=== PATIENT | male | born 1975 | race Caucasian/White ===

== ENCOUNTER 2021-04-25 01:01 | Emergency (ER) | payer BC, OTHER ==
[~2021-04-25] VITALS: Ht 172.7 cm; Wt 105.7 kg
[2021-04-25 01:07] VITALS: BP 179/108
--- NOTE | 2021-04-25 01:25 | ED GI ---
General Chief Complaint: Abdominal/GI Problems Stated Complaint: ABDOMINAL PAIN Source of Information: Patient History of Present Illness Date Seen by Provider: Apr 25, 2021 Time Seen by Provider: 01:22 Initial Comments 45-year-old male presents with left lower abdominal pain present since yesterday morning and then worse tonight around 8 PM pain waxed and waned up until that time before got worse and became constant. Some associated nausea without vomiting. Denies constipation or diarrhea. Lateral movement within the last 12 hours and it was normal without any blood. No significant past medical history. No difficulty with urination or blood in his urine. Recent illness, fever chills Allergies and Home Medications Allergies Coded Allergies: No Known Drug Allergies (Unverified , 04/25/21) Home Medications Hydrocodone/Acetaminophen 1 Each Tablet, 1 EACH PO Q4H Prescribed by: SONYA CARRANZA on 04/25/21152 Ibuprofen 800 Mg Tablet, 800 MG PO Q8H PRN for PAIN Prescribed by: SONYA CARRANZA on 04/25/21152 Tamsulosin HCl 0.4 Mg Cap, 0.4 MG PO DAILY Prescribed by: SONYA CARRANZA on 04/25/21152 Patient Home Medication List Home Medication List Reviewed: Yes Review of Systems Review of Systems Constitutional: No fever, No malaise, No weakness Respiratory: Denies Cough, Denies Shortness of Air Cardiovascular: Denies Chest Pain, Denies Edema, Denies Lightheadedness Gastrointestinal: See HPI; Denies Abdomen Distended; Abdominal Pain; Denies Constipated, Denies Diarrhea, Denies Nausea, Denies Poor Appetite, Denies Vomiting Genitourinary: Denies Burning, Denies Flank Pain, Denies Hematuria Musculoskeletal: No back pain, No joint pain Skin: No change in color, No rash Past Erllwvy-[id number]-Mwmygc Hx Patient Social History Tobacco Use?: No Use of E-Cig and/or Vaping dev: No Substance use?: No Alcohol Use?: No Pt feels they are or have been: No Physical Exam Vital Signs Vital Signs - First Documented 04/25/21 01:07 Temp 35.7 Pulse 94 Resp 14 B/P (MAP) 179/108 (131) Pulse Ox 98 Capillary Refill : Height/Weight/BMI Height: '" Weight: lbs. oz. kg; BMI Method: General Appearance: WD/WN, no apparent distress Respiratory: chest non-tender, lungs clear, normal breath sounds Cardiovascular: regular rate, rhythm, no edema, no JVD Gastrointestinal: soft; No guarding, No rebound; tenderness (LLQ); No hepatomegaly, No spleenomegaly Back: normal inspection, no CVA tenderness, no vertebral tenderness Male: no hernia; No inguinal tenderness, No testicular tenderness Neurologic/Psychiatric: alert, normal mood/affect, oriented x 3 Skin: normal color, warm/dry Progress/Results/Core Measures Results/Orders Lab Results Laboratory Tests Test 04/25/21 01:26 04/25/21 01:30 Range/Units Urine Color YELLOW Urine Clarity CLOUDY Urine pH 8.0 5-9 Urine Specific [place] 1.015 L 1.016-1.022 Urine Protein NEGATIVE NEGATIVE Urine Glucose (UA) NEGATIVE NEGATIVE Urine Ketones NEGATIVE NEGATIVE Urine Nitrite NEGATIVE NEGATIVE Urine Bilirubin NEGATIVE NEGATIVE Urine Urobilinogen 1.0 < = 1.0 MG/DL Urine Leukocyte Esterase NEGATIVE NEGATIVE Urine RBC (Auto) 2+ H NEGATIVE Urine RBC 25-50 H /HPF Urine WBC NONE /HPF Urine Squamous Epithelial Cells NONE /HPF Urine Crystals PRESENT H /LPF Urine Amorphous Sediment LARGE FERCHO PHOSPHATE H /LPF Urine Bacteria FEW H /HPF Urine Casts NONE /LPF Urine Mucus NEGATIVE /LPF Urine Culture Indicated NO White Blood Count 13.1 H 4.3-11.0 10^3/uL Red Blood Count 5.45 4.35-5.85 10^6/uL Hemoglobin 16.5 13.3-17.7 G/DL Hematocrit 47 40-54 % Mean Corpuscular Volume 86 80-99 FL Mean Corpuscular Hemoglobin 30 25-34 PG Mean Corpuscular Hemoglobin Concent 35 32-36 G/DL Red Cell Distribution Width 12.7 10.0-14.5 % Platelet Count 236 130-400 10^3/uL Mean Platelet Volume 10.2 7.4-10.4 FL Immature Granulocyte % (Auto) 0 % Neutrophils (%) (Auto) 88 H 42-75 % Lymphocytes (%) (Auto) 7 L 12-44 % Monocytes (%) (Auto) 4 0-12 % Eosinophils (%) (Auto) 0 0-10 % Basophils (%) (Auto) 0 0-10 % Neutrophils # (Auto) 11.5 H 1.8-7.8 X 10^3 Lymphocytes # (Auto) 1.0 1.0-4.0 X 10^3 Monocytes # (Auto) 0.5 0.0-1.0 X 10^3 Eosinophils # (Auto) 0.0 0.0-0.3 10^3/uL Basophils # (Auto) 0.1 0.0-0.1 10^3/uL Immature Granulocyte # (Auto) 0.1 0.0-0.1 10^3/uL Neutrophils % (Manual) 91 % Lymphocytes % (Manual) 4 % Monocytes % (Manual) 5 % Sodium Level 140 135-145 MMOL/L Potassium Level 4.0 3.6-5.0 MMOL/L Chloride Level 103 98-107 MMOL/L Carbon Dioxide Level 26 21-32 MMOL/L Anion Gap 11 5-14 MMOL/L Blood Urea Nitrogen 13 7-18 MG/DL Creatinine 1.46 H 0.60-1.30 MG/DL Estimat Glomerular Filtration Rate 52 BUN/Creatinine Ratio 9 Glucose Level 200 H 70-105 MG/DL Calcium Level 9.3 8.5-10.1 MG/DL My Orders Orders - SONYA CARRANZA DO Ct Abdomen/Pelvis Wo (04/25/21 01:19) Ns Iv 1000 Ml (Sodium Chloride 0.9%) (04/25/21 01:30) Ketorolac Injection (Toradol Injection) (04/25/21 01:30) Ed Iv/Invasive Line Start (04/25/21 01:19) Cbc With Automated Diff (04/25/21 01:19) Urinalysis (04/25/21 01:19) Basic Metabolic Panel (04/25/21 01:19) Manual Differential (04/25/21 01:30) Medications Given in ED Current Medications Medications Dose Ordered Sig/Deisy Route Start Time Stop Time Status Last Admin Dose Admin Ketorolac Tromethamine 30 mg ONCE ONCE IVP 04/25/21 01:30 04/25/21 01:31 DC 04/25/21 01:31 30 MG Vital Signs/I&O 04/25/21 01:07 Temp 35.7 Pulse 94 Resp 14 B/P (MAP) 179/108 (131) Pulse Ox 98 Progress Progress Note : Progress Note felt much better after toradol reassurance given, explained stone would likely pass, need to strain urine and URO follow up if not improving in a few days. Diagnostic Imaging Diagonstic Imaging: CT Plain Films/CT/US/NM/MRI: abdomen, pelvis Comments distal ureteral stone Let UVJ Reviewed: Reviewed by Me Departure Impression Primary Impression: Abdominal pain Qualified Codes: R10.32 - Left lower quadrant pain Disposition: HOME, SELF-CARE Condition: Improved Departure-Patient Inst. Decision time for Depature: 01:51 Referrals: ROSE PAUL MD (PCP/Family) Primary Care Physician GRACIA ARAGON MD Patient Instructions: Kidney Stone Diet, Kidney Stones (DC) Add. Discharge Instructions: Call Dr Aragon's office in 2 to 3 days if symptoms are not resolved All discharge instructions reviewed with patient and/or family. Voiced understanding. Scripts Ibuprofen (Ibuprofen) 800 Mg Tablet 800 MG PO Q8H PRN for PAIN, #30 TAB 0 Refills Prov: SONYA CARRANZA DO 04/25/21 Hydrocodone/Acetaminophen (Hydrocodone-Acetamin 5-325 mg) 1 Each Tablet 1 EACH PO Q4H for Abdominal Pain, #10 TAB Prov: SONYA CARRANZA DO 04/25/21 Tamsulosin HCl (Flomax) 0.4 Mg Cap 0.4 MG PO DAILY, #5 CAP Prov: SONYA CARRANZA DO 04/25/21 SONYA CARRANZA DO Apr 25, 2021 01:25
[2021-04-25] MEDS ORDERED: NS IV 1000 ML 1,000 ML IV SCH (01:30)
[2021-04-25] MEDS ORDERED: KETOROLAC 30 MG/ML VIAL IVP ONE (01:30)
[2021-04-25 01:39] LABS: BASOPHILS % (AUTO) 0 % (0-10); EOSINOPHILS % (AUTO) 0 % (0-10); HEMATOCRIT 47 % (40-54); HEMOGLOBIN 16.5 G/DL (13.3-17.7); LYMPHOCYTES % (AUTO) 7 % (12-44); MEAN CORPUSCULAR HEMOGLOBIN 30 PG (25-34); MEAN CORPUSCULAR HGB CONC 35 G/DL (32-36); MEAN CORPUSCULAR VOLUME 86 FL (80-99); MEAN PLATELET VOLUME 10.2 FL (7.4-10.4); MONOCYTES # (AUTO) 0.5 X 10^3 (0.0-1.0); MONOCYTES % (AUTO) 4 % (0-12); NEUTROPHILS # (AUTO) 11.5 X 10^3 (1.8-7.8); NEUTROPHILS % (AUTO) 88 % (42-75); PLATELET COUNT 236 10^3/uL (130-400); WHITE BLOOD COUNT 13.1 10^3/uL (4.3-11.0)
[2021-04-25 01:40] LABS: BASOPHILS # (AUTO) 0.1 10^3/uL (0.0-0.1)
[2021-04-25 01:46] LABS: AMORPHOUS SEDIMENT,UR LARGE AMOR PHOSPHATE /LPF; BACTERIA,URINE FEW /HPF; BILIRUBIN,URINE NEGATIVE (NEGATIVE); CLARITY,URINE CLOUDY; COLOR,URINE YELLOW; GLUCOSE, URINE (UA) NEGATIVE (NEGATIVE); KETONES,URINE NEGATIVE (NEGATIVE); LEUKOCYTE ESTERASE ,URINE NEGATIVE (NEGATIVE); NITRITE,URINE NEGATIVE (NEGATIVE); PROTEIN,URINE NEGATIVE (NEGATIVE); RBC,URINE 25-50 /HPF
[2021-04-25 01:52] LABS: LYMPHOCYTES % (MANUAL) 4 %; MONOCYTES % (MANUAL) 5 %; NEUTROPHILS % (MANUAL) 91 %
[2021-04-25] MEDS ORDERED: TMSL.4C PO (01:53)
[2021-04-25] MEDS ORDERED: ACHD5005 PO (01:53)
[2021-04-25] MEDS ORDERED: IBUP-1780 PO (01:53)
[2021-04-25 01:59] LABS: CALCIUM 9.3 MG/DL (8.5-10.1); CREATININE SERUM 1.46 MG/DL (0.60-1.30)
--- NOTE | 2021-04-25 07:17 | Diagnostic Imaging Report ---
PROCEDURE: CT abdomen and pelvis without contrast. TECHNIQUE: Multiple contiguous axial images were obtained through the abdomen and pelvis without the use of intravenous contrast. Auto Exposure Controls were utilized during the CT exam to meet ALARA standards for radiation dose reduction. INDICATION: Left lower abdominal pain COMPARISON: There are no prior studies available for comparison. FINDINGS: Image 146 of 183 through the low pelvis shows a 5.2 mm calculus in the distal-most portion of the left ureter. There is considerable distortion of the periureteral fat near the bladder and there is dilatation of the left ureter and left renal pelvis. There is also pronounced perinephric stranding. These findings would be consistent with obstruction of the left collecting system due to the aforementioned calculus. There is no other evidence for nephrolithiasis or urolithiasis. There is diverticulosis of the sigmoid colon but there is no sign of acute diverticulitis. The appendix was not well-visualized. There is no acute abnormality of the abdomen or pelvis noted otherwise. The lung bases are clear. The bone windows show no sign of a fracture or of a destructive lesion. IMPRESSION: 1. There is partial obstruction of the left collecting system due to a 5.2 mm calculus at the ureterovesical junction. 2. There is no acute abnormality of the abdomen or pelvis noted otherwise. 3. I agree with the [facility] interpretation of this exam. Dictated by: Dictated on workstation # [id number]
== END 2021-04-25 01:57 | disposition home or self-care (01) ==
LOC: ER FS 01:06
DX: R10.32 Left lower quadrant pain (principal)
CPT/HCPCS: 36415; 74176; 80048; 81000; 85007; 85027